=== PATIENT | female | born 1995 | race Caucasian/White ===

== ENCOUNTER 2020-11-23 11:44 | Emergency (ER) | payer OTHER ==
[2020-11-23 12:38] VITALS: BMI 25.0
[2020-11-23] MEDS ORDERED: KETOROLAC TROMETHAMINE 30 MG/1 ML VIAL IVPUSH ONE (12:41)
[2020-11-23] MEDS ORDERED: MAG HYDROX/AL HYDROX/SIMETH 30 ML UNIT-DOSE CUP PO ONE (12:41)
[2020-11-23] MEDS ORDERED: DICYCLOMINE HCL 20 MG TABLET PO ONE (12:42)
[2020-11-23] MEDS ORDERED: MAG HYDROX/AL HYDROX/SIMETH 30 ML UNIT-DOSE CUP ONE (13:07)
[2020-11-23] MEDS ORDERED: DICYCLOMINE HCL 10 MG CAPSULE ONE (13:07)
[2020-11-23 14:13] LABS: HCG,QUALITATIVE URINE Negative
[2020-11-23 14:15] LABS: PH,URINE 5.5 (5.0-8.0); URINE APPEARANCE CLEAR; URINE BILIRUBIN NEGATIVE (NEGATIVE); URINE COLOR YELLOW; URINE GLUCOSE (UA) NEGATIVE (NEGATIVE); URINE KETONE NEGATIVE (NEGATIVE); URINE LEUK ESTERASE NEGATIVE (NEGATIVE); URINE NITRITE NEGATIVE (NEGATIVE); URINE PROTEIN NEGATIVE (NEGATIVE); URINE UROBILINOGEN 0.2 mg/dL (0.2-1.0)
[2020-11-23 14:21] LABS: BASO % 0.8 % (0-2.0); EOS % 1.5 % (0-4.5); HEMATOCRIT 40.2 % (32.4-45.2); HEMOGLOBIN 13.6 GM/dL (10.7-15.3); LYMPH % 27.7 % (8-40); MCH 29.4 pg (25.7-33.7); MCHC 33.9 g/dl (32.0-36.0); MEAN CELL VOLUME 86.6 fl (80-96); MEAN PLT VOLUME 9.2 fl (7.5-11.1); MONO % 12.1 % (3.8-10.2); NEUT % 57.9 % (42.8-82.8); PLATELET COUNT 255 K/MM3 (134-434); RBC 4.64 M/mm3 (3.60-5.2); RDW 13.7 % (11.6-15.6); WHITE BLOOD COUNT 6.1 K/mm3 (4.0-10.0)
[2020-11-23 14:41] LABS: BLOOD UREA NITROGEN 12.5 mg/dL (7-18); CALCIUM 9.3 mg/dL (8.5-10.1)
[2020-11-23 14:44] LABS: CREATININE 0.6 mg/dL (0.55-1.3)
[2020-11-23 14:46] LABS: BILIRUBIN,TOTAL 0.4 mg/dL (0.2-1); TOT PROT 7.5 g/dl (6.4-8.2)
[2020-11-23 15:51] VITALS: BP 110/74; PULSE 81; TEMP 97.5
== END 2020-11-23 15:45 | disposition home or self-care (01) ==
LOC: JER 11:44
PROC: 3E0333Z Introduction of Anti-inflammatory into Peripheral Vein, Percutaneous Approach (ICD-10-PCS; principal; 2020-11-23)
DX: N83.201 Unspecified ovarian cyst, right side (principal)
CPT/HCPCS: 36415; 74177-TC; 80053; 81003; 83690; 84703; 85025; 99285-25; Q9967